=== PATIENT | female | born 1990 | race Asian ===

== ENCOUNTER 2017-08-27 14:51 | Emergency (ER) | payer OTHER ==
[2017-08-27 16:16] LABS: Hematocrit 38 % (35-47); Hemoglobin 13.3 g/dl (12.0-16.0); Mean Corpuscular HGB Conc 35 g/dl (31-36); Mean Corpuscular Hemoglobin 32 pg (27-31); Mean Corpuscular Volume 93 fL (80-97); Mean Platelet Volume 8 um3 (7.4-10.4); Red Blood Count 4.13 10^6/ul (4.0-5.4); Red Cell Distribution Width 14 % (10.5-15); White Blood Count 6.8 10^3/ul (3.5-10.8)
[2017-08-27 16:29] LABS: Albumin 4.2 g/dL (3.2-5.2); BUN/Creatinine Ratio 22.7 (8-20); EGFR African American 120.1 (>60); EGFR Non-African American 93.4 (>60); Potassium 3.8 mmol/L (3.5-5.0); Total Bilirubin 0.3 mg/dL (0.2-1.0); Total Protein 7.2 g/dL (6.4-8.9)
--- NOTE | 2017-08-27 16:35 | RAD ---
INDICATION: Right face tingling and numbness. COMPARISON: CTA head and neck July 02, 2017 TECHNIQUE: Contiguous axial sections of the brain were obtained from the skull base to the vertex without contrast. FINDINGS: The ventricles, cisterns and sulci are within normal limits. The menezes-white matter differentiation is adequately maintained and there is no sulcal effacement. No significant focal abnormality or mass effect is present. There is no evidence for intracranial hemorrhage. No significant focal osseous abnormality is present. The visualized portion of the paranasal sinuses and mastoid air cells appear clear. IMPRESSION: Normal CT of the brain.
[2017-08-27] MEDS ORDERED: Iohexol 350* (CONTRAST) 500 ML MDV IV ONE (17:21)
[2017-08-27 17:42] LABS: Urine Bilirubin Negative (Negative); Urine Glucose Negative (Negative); Urine Nitrite Negative (Negative)
[2017-08-27 17:51] VITALS: BP 122/83
[2017-08-27 17:57] LABS: Benzodiazepine Urine Screen None Detected (None Detect)
--- NOTE | 2017-08-28 08:01 | ED ---
Jonathan Chapa Angela, scribed for Jerson Barksdale MD on 08/27/17 at 1546 . Neurological HPI - HPI Summary HPI Summary: This pt is a 27 y/o female presenting to [facility] c/o right sided facial tingling that began this morning. Pt notes tingling began suddenly. Pt additionally c/o tingling in right fingers and pain on the right side of her neck. She reports her pain began after a neck adjustment 2 months ago after seeing a chiropractor. Pt states her pain began after 20 minutes of neck adjustment and felt dizziness and light-headedness. Pt currently has tingling on the right side of her face. LMP: 2 weeks ago. Pt takes naproxen. - History of Current Complaint Chief Complaint: EDGeneral Stated Complaint: RIGHT FACE NUMBNESS,DIZZY Time Seen by Provider: 08/27/17 15:29 Hx Obtained From: Patient Onset/Duration: Started hours ago, Still Present Timing: Constant Neurological Deficit Location: Facial - right sided, RUE - fingers Pain Intensity: 0 Character: Paresthesia - Tingling in right side of face - Allergy/Home Medications Allergies/Adverse Reactions: Allergies Allergy/AdvReac Type Severity Reaction Status Date / Time No Known Allergies Allergy Verified 07/02/17 13:07 PMH/Surg Hx/FS Hx/Imm Hx Endocrine/Hematology History: Denies: Hx Diabetes Cardiovascular History: Denies: Hx Hypertension History: Denies: Hx Dialysis, Hx Renal Disease Infectious Disease History: No Infectious Disease History: Denies: Traveled Outside the [place] in Last 30 Days - Family History Known Family History: Negative: Cardiac Disease, Hypertension, Diabetes - Social History Alcohol Use: None Substance Use Type: Reports: None Smoking Status (MU): Never Smoked Tobacco Review of Systems Negative: Fever, Chills ENT: Negative Cardiovascular: Negative Respiratory: Negative Gastrointestinal: Negative Genitourinary: Negative Musculoskeletal: Other - pain on the right side of neck Skin: Negative Positive: Paresthesia - on right side of face and right fingers All Other Systems Reviewed And Are Negative: Yes Physical Exam - Summary Physical Exam Summary: VITAL SIGNS: Reviewed. GENERAL: Patient is a well-developed and nourished female who is lying comfortable in the stretcher. Patient is not in any acute respiratory distress. HEAD AND FACE: No signs of trauma. No ecchymosis, hematomas or skull depressions. No sinus tenderness. EYES: PERRLA, EOMI x 2, No injected conjunctiva, no nystagmus. No photophobia. EARS: Hearing grossly intact. Ear canals and tympanic membranes are within normal limits. MOUTH: Oropharynx within normal limits. NECK: Supple, trachea is midline, no adenopathy, no JVD, no carotid bruit, no c- spine tenderness, neck with full ROM. No meningeal signs, no Kernig's or brudzinskis signs. CHEST: Symmetric, no tenderness at palpation LUNGS: Clear to auscultation bilaterally. No wheezing or crackles. CVS: Regular rate and rhythm, S1 and S2 present, no murmurs or gallops appreciated. ABDOMEN: Soft, non-tender. No signs of distention. No rebound no guarding, and no masses palpated. Bowel sounds are normal. EXTREMITIES: FROM in all major joints, no edema, no cyanosis or clubbing. NEURO: Alert and oriented x 3. No acute neurological deficits except for decreased sensation on the right side of the neck. Speech is normal and follows commands. SKIN: Dry and warm GCS: 15 Triage Information Reviewed: Yes Vital Signs On Initial Exam: Initial Vitals Temp Pulse Resp BP Pulse Ox 98.9 F 85 16 120/80 100 08/27/17 15:03 08/27/17 15:03 08/27/17 15:03 08/27/17 15:03 08/27/17 15:03 Vital Signs Reviewed: Yes - Paola Coma Scale Coma Scale Total: 15 Diagnostics - Vital Signs Vital Signs Temp Pulse Resp BP Pulse Ox 08/27/17 15:03 98.9 F 85 16 120/80 100 - Laboratory Result Diagrams: 08/27/17 16:04 08/27/17 16:04 Lab Statement: Any lab studies that have been ordered have been reviewed, and results considered in the medical decision making process. - CT Brain CT CT Interpretation: No Acute Changes - IMPRESSION: Normal CT of the brain. ED physician has reviewed this radiology report and agrees. CT Interpretation Completed By: Radiologist - EKG 1615 Cardiac Rate: NL EKG Rhythm: Sinus Rhythm - at 81 bpm EKG Interpretation: No ST elevation Re-Evaluation - Re-Evaluation First Eval Re-Evaluation Time: 17:05 Comment: I discussed the plan to do a CTA of the neck. She reports she already had one done, which resulted negative. Course/Dx - Course Assessment/Plan: This pt is a 27 y/o female presenting to [facility] c/o right sided facial tingling that began this morning. Pt notes tingling began suddenly. Pt additionally c/o tingling in right fingers and pain on the right side of her neck. She reports her pain began after a neck adjustment 2 months ago after seeing a chiropractor. Pt states her pain began after 20 minutes of neck adjustment and felt dizziness and light-headedness. Pt currently has tingling on the right side of her face. LMP: 2 weeks ago. Pt takes naproxen. Test results within normal limits. Head CT shows a normal CT of the brain. I discussed the case with Dr. Dominguez who recommended to do CTA of the neck. I went to discuss the CTA plan with the pt and she reports she already had a CTA done after she had the chiropractor maneuver, which she did not mention in the before in the history. She reports the CTA was negative. Therefore, she will be discharge home with follow up from Dr. Dominguez, neurologist. Pt is hemodynamically, alert and oriented x3. - Diagnoses Provider Diagnoses: Neuropathy - Physician Notifications Discussed Care Of Patient With: Mark Dominguez Time Discussed With Above Provider: 17:00 Instructed by Provider To: Other - I discussed the pt's case with Dr. Dominguez. He recommends to do a CTA of the neck. Discharge - Discharge Plan Condition: Stable Disposition: HOME Patient Education Materials: Peripheral Neuropathy (ED) Referrals: [facility] - [place]aveed [Primary Care Provider] - Mark Dominguez MD [Medical Doctor] - Additional Instructions: Please follow up with Dr. Dominguez, neurologist. RETURN TO THE ED FOR ANY WORSENING OR NEW SYMPTOMS. The documentation as recorded by the Jonathan sebastian Angela accurately reflects the service I personally performed and the decisions made by me, Jerson Barksdale MD.
== END 2017-08-27 17:51 | disposition home or self-care (01) ==
LOC: ED 14:51
DX: R20.2 Paresthesia of skin (principal); G62.9 Polyneuropathy, unspecified
CPT/HCPCS: 36415; 70450; 80053; 80307; 81003; 83605; 84484; 85025; 85610; 93005; 99282

== ENCOUNTER 2017-10-20 10:56 | Emergency (ER) | payer OTHER ==
[2017-10-20] MEDS ORDERED: diPHENhydraMINE IV* 50 MG/ML 1 ml VIAL (BENADRYL) IV ONE (11:17)
[2017-10-20] MEDS ORDERED: Metoclopramide IV* 5 MG/ML 2 ML VIAL IV ONE (11:17)
[2017-10-20] MEDS ORDERED: Ketorolac INJ* 30 MG/ML 1 ML VIAL IV ONE (11:17)
[2017-10-20 12:03] LABS: ABS Basophils 0.1 10^3/ul (0-0.2); ABS Eosinophils 0.2 10^3/ul (0-0.6); ABS Lymphocytes 1.4 10^3/ul (1.0-4.8); ABS Monocytes 0.3 10^3/ul (0-0.8); ABS Neutrophils 4.3 10^3/ul (1.5-7.7); ABS Nucleated RBC 0 10^3/ul; Eosinophil % 2.6 % (0-6); Hematocrit 42 % (35-47); Hemoglobin 14.5 g/dl (12.0-16.0); Lymphocyte % 22.6 % (25-47); Mean Corpuscular HGB Conc 34 g/dl (31-36); Mean Corpuscular Hemoglobin 32 pg (27-31); Mean Corpuscular Volume 94 fL (80-97); Mean Platelet Volume 8 um3 (7.4-10.4); Nucleated Red Blood Cells % 0.1; Platelet Count 253 10^3/ul (150-450); Red Blood Count 4.51 10^6/ul (4.0-5.4); Red Cell Distribution Width 13 % (10.5-15); White Blood Count 6.3 10^3/ul (3.5-10.8)
--- NOTE | 2017-10-20 12:11 | ED ---
Headache - HPI Summary HPI Summary: Patient presents to the ED with CC of worst VOGEL of life discretely located over the R occipital and area. Endorses nausea and dizziness and photophobia. Denies previous history of migraines or VOGEL. She states she has been experiencing intermittent dizziness since having an adjustment through her chiropractor 4 months ago. She has not taken any medications for the dizziness and has not taken any new medications or endorses any new medical history. She was seen 6 weeks ago for dizziness and giddiness and Dr. Tipton consulted who recommended a CTA. However, patient told provider she had already had a CTA of the neck which was negative. She was to follow up with Dr. Dominguez which she has not yet at this time. She is also receiving vestibular rehab through [facility]. Previous note from Dr. Barksdale on 08/27/17 visit is as follows: This pt is a 27 y/o female presenting to [facility] [place] c/o right sided facial tingling that began this morning. Pt notes tingling began suddenly. Pt additionally c/o tingling in right fingers and pain on the right side of her neck. She reports her pain began after a neck adjustment 2 months ago after seeing a chiropractor. Pt states her pain began after 20 minutes of neck adjustment and felt dizziness and light-headedness. Pt currently has tingling on the right side of her face. LMP: 2 weeks ago. Pt takes naproxen. Test results within normal limits. Head CT shows a normal CT of the brain. I discussed the case with Dr. Dominguez who recommended to do CTA of the neck. I went to discuss the CTA plan with the pt and she reports she already had a CTA done after she had the chiropractor maneuver, which she did not mention in the before in the history. She reports the CTA was negative. Therefore, she will be discharge home with follow up from Dr. Dominguez, neurologist. Pt is hemodynamically, alert and oriented x3. - History Of Current Complaint Chief Complaint: EDHeadache Stated Complaint: HEADACHE Time Seen by Provider: 10/20/17 11:04 Hx Obtained From: Patient Onset/Duration: Sudden Onset Initially Headache Was: "Worst Headache Ever", Initial Pain Scale(0-10)= - 10 Currently Pain Is: Current Pain Scale(0-10)= - 10 Timing: Constant Character: Sharp, Throbbing Location of Headache: Occipital Aggravating Factor: Nothing Allevating Factors: Nothing Associated Signs And Symptoms: Dizziness, Nausea - Risk Factors SAH Risk Factors: Negative Meningitis Risk Factors: Negative SDH Risk Factors: Negative Temporal Arteritis Risk Factors: Female - Allergies/Home Medications Allergies/Adverse Reactions: Allergies Allergy/AdvReac Type Severity Reaction Status Date / Time No Known Allergies Allergy Verified 07/02/17 13:07 PMH/Surg Hx/FS Hx/Imm Hx Previously Healthy: Yes Endocrine/Hematology History: Denies: Hx Diabetes Cardiovascular History: Denies: Hx Hypertension History: Denies: Hx Dialysis, Hx Renal Disease - Immunization History Hx Pertussis Vaccination: No Immunizations Up to Date: Unable to Obtain/Confirm Infectious Disease History: No Infectious Disease History: Reports: Traveled Outside the [place] in Last 30 Days - [place] and [place] - Family History Known Family History: Negative: Cardiac Disease, Hypertension, Diabetes - Social History Occupation: Student Lives: Alone Alcohol Use: None Hx Substance Use: No Substance Use Type: Reports: None Hx Tobacco Use: No Smoking Status (MU): Never Smoked Tobacco Review of Systems Constitutional: Negative Negative: Fever, Chills, Fatigue, Skin Diaphoresis Positive: Photophobia ENT: Negative Cardiovascular: Negative Respiratory: Negative Genitourinary: Negative Positive: no symptoms reported, see HPI Musculoskeletal: Negative Positive: Headache Psychological: Normal All Other Systems Reviewed And Are Negative: Yes Physical Exam Triage Information Reviewed: Yes Vital Signs On Initial Exam: Initial Vitals Temp Pulse Resp BP Pulse Ox 98.7 F 81 18 124/81 100 10/20/17 11:00 10/20/17 11:00 10/20/17 11:00 10/20/17 11:00 10/20/17 11:00 Vital Signs Reviewed: Yes Appearance: Positive: Well-Appearing, Well-Nourished Skin: Positive: Warm, Skin Color Reflects Adequate Perfusion Head/Face: Positive: Normal Head/Face Inspection Eyes: Positive: EOMI, HOOD, Conjunctiva Clear Neck: Positive: Supple, No Lymphadenopathy Respiratory/Lung Sounds: Positive: Clear to Auscultation, Breath Sounds Present Cardiovascular: Positive: Normal, RRR, Pulses are Symmetrical in both Upper and Lower Extremities Musculoskeletal: Positive: Normal, Strength/ROM Intact Neurological: Positive: Sensory/Motor Intact, Alert, Oriented to Person Place, Time, CN Intact II-III, Normal Gait, Speech Normal Psychiatric: Positive: Normal, Affect/Mood Appropriate AVPU Assessment: Alert Diagnostics - Vital Signs Vital Signs Temp Pulse Resp BP Pulse Ox 10/20/17 11:30 83 114/78 100 10/20/17 11:20 83 100 10/20/17 11:18 117/84 10/20/17 11:00 98.7 F 81 18 124/81 100 - Laboratory Lab Results: Lab Results 10/20/17 Range/Units 11:40 WBC 6.3 (3.5-10.8) 10^3/ul RBC 4.51 (4.0-5.4) 10^6/ul Hgb 14.5 (12.0-16.0) g/dl Hct 42 (35-47) % MCV 94 (80-97) fL MCH 32 H (27-31) pg MCHC 34 (31-36) g/dl RDW 13 (10.5-15) % Plt Count 253 (150-450) 10^3/ul MPV 8 (7.4-10.4) um3 Neut % (Auto) 69.1 (38-83) % Lymph % (Auto) 22.6 L (25-47) % Mcculloch % (Auto) 4.7 (1-9) % Eos % (Auto) 2.6 (0-6) % Baso % (Auto) 1.0 (0-2) % Absolute Neuts (auto) 4.3 (1.5-7.7) 10^3/ul Absolute Lymphs (auto) 1.4 (1.0-4.8) 10^3/ul Absolute Monos (auto) 0.3 (0-0.8) 10^3/ul Absolute Eos (auto) 0.2 (0-0.6) 10^3/ul Absolute Basos (auto) 0.1 (0-0.2) 10^3/ul Absolute Nucleated RBC 0 10^3/ul Nucleated RBC % 0.1 ESR Pending Result Diagrams: 10/20/17 11:40 10/20/17 11:40 Lab Statement: Any lab studies that have been ordered have been reviewed, and results considered in the medical decision making process. Headache Course/Dx - Course Course Of Treatment: On arrival, patient is given toradol, benadryl and reglan. D/t worst VOGEL of life she is advised to have a CT brain. She is OK with this plan. CT brain obtained and negative for any results. With no new injury and previous CTA negative, will not repeat at this time. Negative for any risk factors for meningitis, PMR, SAH, SDH and only risk factor for TA is gender. The pain is non-radiating and discretely located over the R occipital area. Acute onset. Pain reduced with migraine cocktail, but she still complains of a dull ache. She is given fiorcet with little improvement. She is given morphine and zofran with relief. Called Dr Tipton for consultation who recommends a CTA head and neck to assess for small SAH although unlikely. CTA results: IMPRESSION: 1. NO INTERNAL CAROTID ARTERY STENOSIS BY NASCET CRITERIA. 2. NO ANEURYSM, VASCULAR MALFORMATION, OCCLUSION, OR STENOSIS OF THE VISUALIZED. INTRACRANIAL CIRCULATION. Patient is given sumatriptan for at home prescription and a follow up with Dr. Dominguez (she was previously referred to him). She is Ok with this plan and agrees to return if any symptoms worsen. He states if symptoms worsen to perform an LP but this was deferred at this visit and all labs WNL, neck is supple and there is no evidence of any meningismus symptoms. She is given a note for class. Strict return precautions given. - Diagnoses Differential Diagnosis/HQI/PQRI: Migraine, Sinus Headache, Temporal Arteritis, Tension Headache Provider Diagnoses: Headache Discharge - Discharge Plan Condition: Stable Disposition: HOME Prescriptions: SUMAtriptan TAB* [Imitrex TAB*] 50 mg PO SEE INSTRUCTIONS #20 tab MDD 6 Patient Education Materials: Acute Headache (ED) Forms: *School Release Referrals: [facility] - Naveed JENKINS [Primary Care Provider] - Mark Dominguez MD [Medical Doctor] - Additional Instructions: Please follow up with Dr. Dominguez Call for an appt If VOGEL becomes worse, return to the ED immediately Sumitriptan should be taken at first onset of VOGEL. For symptoms not resolved after 30 minutes, may take another tab Do not exceed 6 tabs daily
[2017-10-20 12:18] LABS: INR 1.02 (0.77-1.02)
[2017-10-20 12:24] LABS: EGFR Non-African American 84.3 (>60)
[2017-10-20] MEDS ORDERED: Butalb/Acetamin/Caff TAB* 1 TAB PO ONE (12:28)
[2017-10-20] MEDS ORDERED: Al Hydrox/Mg Hydrox/Simet LIQ* 30 ML UDC PO ONE (12:28)
--- NOTE | 2017-10-20 12:34 | RAD ---
INDICATION: Worse headache of life. COMPARISON: Comparison is made with a prior CT of the brain from August 27, 2017. TECHNIQUE: Contiguous axial sections of the brain were obtained from the skull base to the vertex without contrast. FINDINGS: The ventricles, cisterns and sulci are within normal limits. No significant focal abnormality or mass effect is seen. There is no evidence for hemorrhage. No significant focal osseous abnormality is seen. The visualized portion of the paranasal sinuses and mastoid air cells appear clear. IMPRESSION: NO EVIDENCE FOR ACUTE INTRACRANIAL ABNORMALITY.
[2017-10-20 12:45] LABS: Urine Appearance Clear; Urine Blood Negative (Negative); Urine Color Yellow; Urine Ketones Negative (Negative); Urine Protein Negative (Negative); Urine Specific Gravity 1.006 (1.010-1.030); Urine Urobilinogen Negative (Negative)
[2017-10-20] MEDS ORDERED: Ondansetron INJ* 2 MG/ML VIAL IV ONE (14:06)
[2017-10-20] MEDS ORDERED: Morphine INJ* 4 MG/ML 1 ML CARPUJECT IV ONE (14:06)
[2017-10-20] MEDS ORDERED: Iohexol 350* (CONTRAST) 500 ML MDV IV ONE (14:15)
--- NOTE | 2017-10-20 15:37 | RAD ---
HISTORY: Headache, light sensitivity, nausea COMPARISONS: Head CT dated October 20, 2017 TECHNIQUE: Multiple contiguous axial CT scans were obtained of the head and neck after the administration of nonionic intravenous contrast timed to the systemic arterial phase of contrast enhancement. Coronal and sagittal multiplanar reformations are submitted for review. Multiple 3-D maximum intensity projection reconstructions are also submitted for review. FINDINGS: CTA NECK: AORTIC ARCH: There is a normal three-vessel branching pattern of the aortic arch. There is no ostial or proximal stenosis of the cephalic great vessels. RIGHT VERTEBRAL ARTERY: The right vertebral artery is patent along its course, without stenosis. LEFT VERTEBRAL ARTERY: The left vertebral artery is patent along its course, without stenosis. DOMINANCE: The left vertebral artery is dominant. RIGHT COMMON CAROTID ARTERY: The right common carotid artery is patent. The right carotid bifurcation occurs at C4-C5 RIGHT INTERNAL CAROTID ARTERY: There is no right internal carotid artery stenosis by NASCET criteria. RIGHT EXTERNAL CAROTID ARTERY: The right external carotid artery is unremarkable. LEFT COMMON CAROTID ARTERY: The left common carotid artery is patent. The left carotid bifurcation occurs at C3-C4 LEFT INTERNAL CAROTID ARTERY: There is no left internal carotid artery stenosis by NASCET criteria. LEFT EXTERNAL CAROTID ARTERY: The left external carotid artery is unremarkable. VENOUS CIRCULATION: The venous system is unremarkable. SALIVARY GLANDS: The parotid glands, submandibular glands, sublingual glands are normal. NASAL CAVITY/NASOPHARYNX: The nasal cavity and nasopharynx are normal. ORAL CAVITY/OROPHARYNX: The oral cavity is obscured by streak artifact from dental amalgam. The visualized oral cavity and oropharynx are unremarkable. LARYNGEAL APPARATUS/HYPOPHARYNX: The laryngeal apparatus and hypopharynx are normal. UPPER AIRWAY/UPPER ESOPHAGUS: The visualized upper airway and esophagus are normal. LUNG APICES: The lung apices are clear. THYROID GLAND: The thyroid gland is normal. LYMPH NODES: There is no lymphadenopathy by size criteria. BONES AND SOFT TISSUES: No bone or soft tissue abnormalities are noted. CTA HEAD: INTRACRANIAL CIRCULATION: There is no aneurysm, vascular malformation, occlusion, or stenosis of the visualized intracranial circulation. The anterior communicating artery complex is clear. Bilateral posterior communicating arteries are identified. VENOUS CIRCULATION: The venous system is unremarkable. PERFUSION: There is no obvious parenchymal perfusion deficit. HEMORRHAGE/INFARCT: There is no hemorrhage or acute infarct. MASSES/SHIFT: There is no mass or shift. EXTRA-AXIAL SPACES: There are no extra-axial fluid collections. SULCI AND VENTRICLES: The sulci and ventricles are normal in size and position for the patient's stated age. CEREBRUM: There are no focal parenchymal abnormalities. BRAINSTEM: There are no focal parenchymal abnormalities. CEREBELLUM: There are no focal parenchymal abnormalities. PARANASAL SINUSES: The paranasal sinuses are clear. ORBITS: The orbits are unremarkable. BONES AND SOFT TISSUE: No bone or soft tissue abnormalities are noted. OTHER: There is no abnormal enhancement. IMPRESSION: 1. NO INTERNAL CAROTID ARTERY STENOSIS BY NASCET CRITERIA. 2. NO ANEURYSM, VASCULAR MALFORMATION, OCCLUSION, OR STENOSIS OF THE VISUALIZED INTRACRANIAL CIRCULATION. CPT II Codes: 3100F
[2017-10-20 16:20] VITALS: BP 112/71
== END 2017-10-20 16:34 | disposition home or self-care (01) ==
LOC: ED 10:56
DX: R42 Dizziness and giddiness (principal); R51 Headache; H53.149 Visual discomfort, unspecified
CPT/HCPCS: 36415; 70450; 70496; 70498; 80053; 81003; 83605; 84702; 85025; 85610; 85652; 96374; 96375; 99284; A9270-GY; J1200; J1885; J2270; J2405; J2765; Q9967